=== PATIENT | female | born 1965 | race Caucasian/White ===

== ENCOUNTER 2021-12-19 21:23 | Emergency (ER) | payer MEDICARE, MEDICAID ==
[~2021-12-19] VITALS: Ht 162.6 cm; Wt 72.7 kg
[~2021-12-19 21:23] MED LIST: GABA-532 PO; HYDR-3686 PO; MEDR2.5T7 PO
[2021-12-19 21:31] VITALS: BP 144/82
== END 2021-12-20 05:30 | disposition left against medical advice (07) ==
LOC: ER 21:24
DX: Z04.6 Encounter for general psychiatric examination, requested by authority (principal); Z53.21 Procedure and treatment not carried out due to patient leaving prior to being seen by health care provider

== ENCOUNTER 2022-09-27 11:32 | Emergency (ER) | payer MEDICARE, MEDICAID ==
[~2022-09-27] VITALS: Ht 162.6 cm; Wt 84.1 kg
[~2022-09-27 11:32] MED LIST changes: +GABA-530 PO; -GABA-532 PO; -MEDR2.5T7 PO; +METF-1203 PO; +OMEP40CA21 PO; +TRAZ-251 PO; +VENL150T3 PO
[2022-09-27 11:55] VITALS: BP 99/60
== END 2022-09-27 13:02 | disposition left against medical advice (07) ==
LOC: ER 11:33
DX: L02.213 Cutaneous abscess of chest wall (principal); Z53.21 Procedure and treatment not carried out due to patient leaving prior to being seen by health care provider
CPT/HCPCS: 99281

== ENCOUNTER 2022-09-30 16:52 | Emergency (ER) | payer MEDICARE, MEDICAID ==
[~2022-09-30] VITALS: Ht 162.6 cm; Wt 81.2 kg
[2022-09-30 16:55] VITALS: BP 146/120
[2022-09-30] MEDS ORDERED: LIDOcaine 1% W/epiNEPHrine 1:100,000 20ml vial IJ ONE (17:05)
[2022-09-30] MEDS ORDERED: SULF1TAB49 PO (17:05)
== END 2022-09-30 17:33 | disposition home or self-care (01) ==
LOC: ER 16:53
DX: L02.213 Cutaneous abscess of chest wall (principal); F17.200 Nicotine dependence, unspecified, uncomplicated; F15.10 Other stimulant abuse, uncomplicated; Z90.49 Acquired absence of other specified parts of digestive tract; Z79.899 Other long term (current) drug therapy
CPT/HCPCS: 10060; 99283; A6449

== ENCOUNTER 2023-02-10 20:11 | Emergency (ER) | payer MEDICARE, MEDICAID ==
[~2023-02-10] VITALS: Ht 162.6 cm; Wt 71.9 kg
[2023-02-10 21:18] LABS: BILIRUBIN,URINE NEGATIVE (Neg); CLARITY,URINE SLIGHTLY CLOUDY (Clear); COLOR,URINE YELLOW (Yellow); GLUCOSE, URINE NEGATIVE (Neg); KETONES,URINE NEGATIVE (Neg); LEUKOCYTE ESTERASE ,URINE TRACE (Neg); NITRITES, URINE NEGATIVE (Neg); OCCULT BLOOD,URINE NEGATIVE (Neg); PROTEIN,URINE NEGATIVE (Neg); UROBILINOGEN,URINE 0.2 E.U/dL (0.2-1.0)
[2023-02-10 21:24] LABS: UA COLLECTION TYPE CLN CATCH MIDSTREAM
[2023-02-10 21:25] LABS: BACTERIA,URINE FEW /HPF (Neg); RBC,URINE 0-2 /HPF (0-2)
[2023-02-10 21:26] LABS: AMORPHOUS URATES 1+; MUCUS STRANDS FEW /LPF (Neg); SQUAMOUS EPITHELIAL CELL,UR FEW /LPF (FEW)
[2023-02-10 21:28] LABS: URINE AMPHETAMINE SCREEN POSITIVE (Neg); URINE BARBITUATE SCREEN NEGATIVE (Neg); URINE BENZODIAZEPINES SCREEN NEGATIVE (Neg); URINE CANNABINOID SCREEN NEGATIVE (Neg); URINE COCAINE SCREEN NEGATIVE (Neg); URINE METHADONE SCREEN NEGATIVE (Neg); URINE OPIATE SCREEN NEGATIVE (Neg); URINE PHENCYCLIDINE SCREEN NEGATIVE (Neg)
[2023-02-10 21:33] LABS: BASOPHILS % (AUTO) 0.3 % (0-1); EOSINOPHILS # (AUTO) 0.2 X10'3 (0-0.9); EOSINOPHILS % (AUTO) 1.6 % (0-6); LYMPHOCYTES # (AUTO) 2.1 X10'3 (1.1-4.8); LYMPHOCYTES % (AUTO) 20.1 % (21-51); MEAN CORPUSCULAR HEMOGLOBIN 32.3 PG (27.0-31.0); MEAN CORPUSCULAR HGB CONC 34.1 g/dL (33.0-36.5); MEAN CORPUSCULAR VOLUME 94.7 FL (78-98); MEAN PLATELET VOLUME 6.8 FL (7.4-10.4); MONOCYTES # (AUTO) 0.5 X10'3 (0-0.9); MONOCYTES % (AUTO) 4.9 % (2-12); NEUTROPHILS # (AUTO) 7.5 X10'3 (1.8-7.7); NEUTROPHILS % (AUTO) 73.1 % (42-75); PLATELET COUNT 387 X10'3 (140-440); RED BLOOD COUNT 4.33 X10'6 (4.20-5.60); RED CELL DISTRIBUTION WIDTH 13.5 % (11.5-14.5); WHITE BLOOD COUNT 10.3 X10'3 (4.5-11.0)
[2023-02-10 21:49] LABS: ALANINE AMINOTRANSFERASE 27 U/L (12-78); ALBUMIN 3.9 G/DL (3.4-5.0); ALBUMIN/GLOBULIN RATIO 1.1 (1.1-1.5); ALKALINE PHOSPHATASE 133 IU/L (46-116); ANION GAP 9 (8-16); ASPARTATE AMINO TRANSFERASE 17 U/L (10-37); BILIRUBIN,TOTAL 0.3 MG/DL (0.1-1.0); BLOOD UREA NITROGEN 14 MG/DL (7-18); BUN/CREATININE RATIO 12.2 (10.0-20.0); CALCIUM 9.3 MG/DL (8.5-10.1); CHLORIDE 100 MMOL/L (99-107); CREATININE 1.15 MG/DL (0.40-0.90); GLUCOSE 160 MG/DL (70-104); POTASSIUM 3.9 MMOL/L (3.5-5.1); SODIUM 138 MMOL/L (135-145); TOTAL CARBON DIOXIDE 28.6 MMOL/L (24-32); TOTAL PROTEIN 7.6 G/DL (6.4-8.2); eCRCL 47 ML/MIN; eGFR 49 ML/MIN
[2023-02-10 21:57] LABS: ETHANOL < 10 MG/DL (<10); THYROID STIMULATING HORMONE 3.16 ulU/ml (0.34-4.50)
[2023-02-11] MEDS ORDERED: GABA-530 PO (01:15)
[2023-02-11] MEDS ORDERED: METF-436 PO (01:15)
[2023-02-11] MEDS ORDERED: FLUO10CA28 PO (01:15)
[2023-02-11] MEDS ORDERED: QUET25TA PO (01:15)
[2023-02-11] MEDS ORDERED: OMEP40CA21 PO (01:15)
[2023-02-11] MEDS ORDERED: ATOR20TA PO (01:18)
--- NOTE | 2023-02-11 01:39 | NUR ---
records sent to [facility]
--- NOTE | 2023-02-11 01:58 | NUR ---
The patient was brought in by her mother for a mental health evaluation. When asked about suicide she initially stated that she really doesn't want to but doesn't want to live the way she is living. She reports that she has been having suicidal thoughts every day ot overdose on her Seroquel. She is currently receiving treatment up in [place] and was changed from Effexor to Prozac two days ago. She admits to substance use. She reports voices that tell her "just hang in there" She reports she has not been sleeping well. She currently lives in a trailer on her son's property and can return there once stable. She stated that she feels like a burden to her family. She endorces occasional alcohol with her last drink the day before she came into the ER. She was very pleasant and cooperative.
--- NOTE | 2023-02-11 03:22 | NUR ---
The patient appears to be sleeping
--- NOTE | 2023-02-11 05:31 | NUR ---
The patient appears to be sleeping
[2023-02-11 06:00] VITALS: BP 109/72; PULSE 67; TEMP 97.1; O2SAT 92
--- NOTE | 2023-02-11 07:11 | NUR ---
Patient sleeping on her right side. Nonlabored respirtions. No distress observed. Continue to monitor.
[2023-02-11] MEDS ORDERED: metFORMIN 500mg tablet PO SCH (07:30)
[2023-02-11] MEDS ORDERED: pantoprazole 40mg Tablet.DR PO SCH (07:30)
[2023-02-11 07:55] VITALS: RESP 17
[2023-02-11] MEDS ORDERED: QUEtiapine 25mg tablet PO SCH (08:00)
[2023-02-11] MEDS ORDERED: FLUoxetine 10mg capsule PO SCH (08:00)
--- NOTE | 2023-02-11 08:56 | NUR ---
Patient eating breakfast. No distress observed. Coontinue to monitor.
[2023-02-11] MEDS: gabapentin 300mg capsule PO SCH ×2 (08:58→13:59)
--- NOTE | 2023-02-11 10:10 | NUR ---
Adwoa RICE, evaluating patient. Continue to monitor.
--- NOTE | 2023-02-11 12:01 | NUR ---
Patient placed on a 5150 hold. Patient sleeping. No distress observed. Continue to monitor.
--- NOTE | 2023-02-11 12:37 | NUR ---
Patient eating lunch. No distress observed. Continue to monitor.
--- NOTE | 2023-02-11 14:11 | NUR ---
Patient calling her mom to advise that she has been accepted to [facility] in [place]. Patient leaving around 1630.
--- NOTE | 2023-02-11 16:06 | NUR ---
Patient sleeping supine. Nonlabored respirations. No distress observed. Continue to monitor.
== END 2023-02-11 17:03 ==
LOC: ER 20:11
DX: R45.851 Suicidal ideations (principal); Z20.822 Contact with and (suspected) exposure to COVID-19; R44.0 Auditory hallucinations; F41.9 Anxiety disorder, unspecified; F32.9 Major depressive disorder, single episode, unspecified; F15.90 Other stimulant use, unspecified, uncomplicated; Z90.49 Acquired absence of other specified parts of digestive tract; Z90.710 Acquired absence of both cervix and uterus; Z79.899 Other long term (current) drug therapy; Z79.84 Long term (current) use of oral hypoglycemic drugs
CPT/HCPCS: 36415; 80053; 80305; 80320; 81001; 84443; 85025; 87811; 99285

== ENCOUNTER 2023-03-10 11:21 | Outpatient (CLI) | payer MEDICARE, MEDICAID ==
[~2023-03-10 11:21] MED LIST changes: +FLUO10CA28 PO; -HYDR-3686 PO; -METF-1203 PO; +METF-436 PO; +QUET25TA PO; -TRAZ-251 PO; -VENL150T3 PO
== END 2023-03-10 23:59 | disposition home or self-care (01) ==
LOC: RAD 11:21
PROVIDERS: ATTEND General Practice
DX: Z79.899 Other long term (current) drug therapy (principal)
CPT/HCPCS: 93005